=== PATIENT | male | born 1975 | race Hispanic/Latino ===

== ENCOUNTER 2017-10-15 05:29 | Observation (INO) | payer OTHER ==
[2017-10-15 05:40] VITALS: BMI 26.9
[2017-10-15] MEDS ORDERED: Lidocaine/Prilocaine CREAM 5GM TP ONE (05:57)
--- NOTE | 2017-10-15 06:08 | ED PDOC ---
HPI: Back Time Seen by Provider: 10/15/17 05:46 Chief Complaint (Nursing): Back Pain Chief Complaint (Provider): Back Pain Onset/Duration Of Symptoms: Days (x3 weeks) Additional Complaint(s): Hammad Amos is a 42 y/o male with a history of herniated discs presenting to the ED with lower left back pain, worsening for the past x3 weeks. Patient reports that last night pain got worse and he took 800 mg Motrin and 1 Percocet with minimal relief. Patient states that walking exacerbates the pain while resting makes it better. He denies any changes with his bowel or bladder as well as any numbness, weakness, or loss of function in extremities. PMD: Dr. Mcrae Past Medical History Reviewed: Historical Data, Nursing Documentation, Vital Signs Vital Signs: Last Vital Signs Temp 97.7 F 10/15/17 05:47 Pulse 73 10/15/17 05:47 Resp 16 10/15/17 05:47 BP 117/75 10/15/17 05:47 Pulse Ox 99 10/15/17 05:47 - Medical History PMH: Back Problems - Surgical History Surgical History: No Surg Hx - Family History Family History: States: Unknown Family Hx - Allergies Allergies/Adverse Reactions: Allergies Allergy/AdvReac Type Severity Reaction Status Date / Time No Known Allergies Allergy Verified 10/15/17 05:49 Review of Systems ROS Statement: Except As Marked, All Systems Reviewed And Found Negative Constitutional: Negative for: Fever Gastrointestinal: Negative for: Diarrhea, Constipation Genitourinary Male: Negative for: Frequency, Incontinence Musculoskeletal: Positive for: Back Pain (lower left) Neurological: Negative for: Weakness, Numbness, Other (loss of consciousness) Physical Exam - Reviewed Nursing Documentation Reviewed: Yes Vital Signs Reviewed: Yes - Physical Exam Appears: Positive for: Well Head Exam: Positive for: ATRAUMATIC, NORMOCEPHALIC Skin: Positive for: Normal Color, Warm, Dry Eye Exam: Positive for: EOMI, Normal appearance, PERRL Neck: Positive for: Normal, Painless ROM, Supple Cardiovascular/Chest: Positive for: Regular Rate, Rhythm. Negative for: Murmur Respiratory: Positive for: Normal Breath Sounds. Negative for: Respiratory Distress Gastrointestinal/Abdominal: Positive for: Normal Exam, Soft. Negative for: Tenderness Back: Positive for: Other (positive straight leg raise test). Negative for: L CVA Tenderness, R CVA Tenderness, Vertebral Tenderness (midline tenderness) Extremity: Positive for: Normal ROM. Negative for: Pedal Edema, Deformity Neurologic/Psych: Positive for: Alert, Oriented. Negative for: Motor/Sensory Deficits - ECG O2 Sat by Pulse Oximetry: 99 (RA) Pulse Ox Interpretation: Normal Medical Decision Making Medical Decision Making: Time: 05:37 A/P: 42 y/o male with history of herniated disc presents with acute on chronic back pain. Not concerned for cord impingement syndrome; pain likely related to herniated disc. --Toradol 60 mg IM 06:15 --Type and Screen --BMP --Neurology consult --CBC with differential --PTT --Prothrombin Time --CXR Time: 06:[address] Brown who recommended patient to come to ER for evaluation of intractable back pain as patient has already tried treatment at home with NSAIDs and opiates. Will admit to Dr. Cavanaugh for eval by Dr. Brown. ----- Scribe Attestation: Documented by Mateus Argueta, acting as a scribe for Raymond Ventura MD. Provider Scribe Attestation: All medical record entries made by the Scribe were at my direction and personally dictated by me. I have reviewed the chart and agree that the record accurately reflects my personal performance of the history, physical exam, medical decision making, and the department course for this patient. I have also personally directed, reviewed, and agree with the discharge instructions and disposition. Disposition - Clinical Impression Clinical Impression: Intractable back pain - Disposition Disposition Time: 06:15 Condition: FAIR Forms: [facility] ([place]ien)
[2017-10-15] MEDS ORDERED: Lidocaine 5% Patch TD ONE (06:09)
[2017-10-15 06:48] LABS: PARTIAL THROMBOPLASTIN TIME 30.9 Seconds (25.6-37.1); PROTHROMBIN TIME 11.1 Seconds (9.8-13.1)
[2017-10-15 06:52] LABS: BASO % 0.5 % (0.0-2.0); EOS # 0.1 K/uL (0.0-0.7); EOS % 1.5 % (0.0-4.0); HEMOGLOBIN 14.4 g/dL (12.0-18.0); LYMPH # 2.2 K/uL (1.0-4.3); LYMPH % 31.5 % (20.0-40.0); MEAN CELL VOLUME 85.5 fl (80.0-94.0); MEAN CORPUSCULAR HEMOGLOBIN 29.2 pg (27.0-31.0); MEAN CORPUSCULAR HGB CONC 34.2 g/dL (33.0-37.0); MEAN PLATELET VOLUME 7.9 fl (7.2-11.7); MONO # 0.6 K/uL (0.0-0.8); MONO % 8.8 % (0.0-10.0); NEUT # 3.9 K/uL (1.8-7.0); NEUT % 57.7 % (50.0-75.0); NRBC % 0.1 % (0.0-0.0); RBC 4.95 Mil/uL (4.40-5.90); WHITE BLOOD COUNT 6.8 K/uL (4.8-10.8)
[2017-10-15 06:55] VITALS: RESP 20
[2017-10-15] MEDS ORDERED: Iohexol 300 10 ML ONE (07:16)
[2017-10-15] MEDS ORDERED: MethylPREDNISolone Depo 40 mg/ml Inj ONE (07:16)
[2017-10-15] MEDS ORDERED: Midazolam 2 MG/2 ML VIAL ONE ×2 (07:26→07:57)
[2017-10-15] MEDS ORDERED: Propofol 10 mg/ml Inj (20 ML) ONE (07:27)
[2017-10-15] MEDS ORDERED: Succinylcholine 200 mg/10 ml Inj IV ONE (07:27)
[2017-10-15 07:31] LABS: BLOOD UREA NITROGEN 19 mg/dl (9-20); CALCIUM 9.4 mg/dL (8.4-10.2); GFR AFRICAN-AMERICAN > 60; GFR NON-AFRICAN AMERICAN > 60
[2017-10-15] MEDS ORDERED: Lactated Ringer's 1,000 ML IV ONE (07:50)
[2017-10-15] MEDS ORDERED: methylPREDNISolone Depo 80 mg/ml Inj IM ONE (08:05)
[2017-10-15] MEDS ORDERED: Lidocaine 2% Inj (20ml) IJ ONE (08:05)
[2017-10-15] MEDS ORDERED: Iohexol 300 10 ML IJ ONE (08:05)
[2017-10-15] MEDS ORDERED: Bupivacaine 0.25% Inj(30mL) IJ ONE (08:05)
--- NOTE | 2017-10-15 08:09 | CP.PCM.CON ---
History of Present Illness - History of Present Illness History of Present Illness: Patient is a 42 y/o male who presents to the [facility] ER with complaints of severe lower back pain. He has had lower back pain for many years with no history of injury or trauma. He notes that the pain has progressively worsened over the past 3 weeks. He has had difficulties with his daily activities including, bending down running. He has tried and failed conservative management, including oral medications and exercises. Currently the pain is sharp and intermittent. The pain worsens with activity and alleviates with rest. The pain is located in the right lowerback and radiates to the right groin occassionally. He denies any numbness/tingling/bowel or bladder incontinence/ saddle paresthesias. He also denies CP/SOB/N/V/D/fever/dysuria/melena. Dr. Brown was consulted for neurosurgical evaluation. Review of Systems - Review of Systems All systems: reviewed and no additional remarkable complaints except Review of Systems: as per HPI Past Patient History - Past Medical History & Family History Past Medical History?: No - Past Social History Smoking Status: Never Smoked Alcohol: None Drugs: Denies - CARDIAC Hx Cardiac Disorders: No - PULMONARY Hx Respiratory Disorders: No - NEUROLOGICAL Hx Neurological Disorder: No - HEENT Hx HEENT Problems: No - RENAL Hx Chronic Kidney Disease: No - ENDOCRINE/METABOLIC Hx Endocrine Disorders: No - HEMATOLOGICAL/ONCOLOGICAL Hx Blood Disorders: No - INTEGUMENTARY Hx Dermatological Problems: No - MUSCULOSKELETAL/RHEUMATOLOGICAL Hx Back Pain: Yes Hx Herniated Disk: Yes - GASTROINTESTINAL Hx Gastrointestinal Disorders: No - GENITOURINARY/GYNECOLOGICAL Hx Genitourinary Disorders: No - PSYCHIATRIC Hx Psychophysiologic Disorder: No Hx Substance Use: No - SURGICAL HISTORY Hx Surgeries: Yes Hx Eye Surgery: Yes (Strabismus correction surgery, Lasik) Other/Comment: Deviated septum - ANESTHESIA Hx Anesthesia: Yes Hx Anesthesia Reactions: No Hx Malignant Hyperthermia: No Meds Allergies/Adverse Reactions: Allergies Allergy/AdvReac Type Severity Reaction Status Date / Time No Known Allergies Allergy Verified 10/15/17 05:49 Physical Exam - Constitutional Appears: Well, No Acute Distress - Head Exam Head Exam: ATRAUMATIC, NORMOCEPHALIC - Eye Exam Eye Exam: EOMI, Normal appearance, PERRL - ENT Exam ENT Exam: Mucous Membranes Moist, Normal Exam - Respiratory Exam Respiratory Exam: Clear to Auscultation Bilateral, NORMAL BREATHING PATTERN - Cardiovascular Exam Cardiovascular Exam: REGULAR RHYTHM - GI/Abdominal Exam GI & Abdominal Exam: Normal Bowel Sounds, Soft - Neurological Exam Neurological exam: Alert, Oriented x3 - Psychiatric Exam Psychiatric exam: Normal Affect, Normal Mood - Skin Skin Exam: Normal Color, Warm Results - Vital Signs Recent Vital Signs: Last Vital Signs Temp 97.7 F 10/15/17 05:47 Pulse 72 10/15/17 06:54 Resp 20 10/15/17 06:54 BP 115/54 L 10/15/17 06:54 Pulse Ox 99 10/15/17 06:54 - Labs Result Diagrams: 10/15/17 06:30 10/15/17 06:30 Labs: Laboratory Results - last 24 hr 10/15/17 10/15/17 10/15/17 06:30 06:30 06:30 WBC 6.8 RBC 4.95 Hgb 14.4 Hct 42.3 MCV 85.5 MCH 29.2 MCHC 34.2 RDW 13.0 Plt Count 284 MPV 7.9 Neut % (Auto) 57.7 Lymph % (Auto) 31.5 Webb % (Auto) 8.8 Eos % (Auto) 1.5 Baso % (Auto) 0.5 Neut # (Auto) 3.9 Lymph # (Auto) 2.2 Webb # (Auto) 0.6 Eos # (Auto) 0.1 Baso # (Auto) 0.0 PT 11.1 INR 1.0 APTT 30.9 Sodium 142 Potassium 4.4 Chloride 104 Carbon Dioxide 30 Anion Gap 12 BUN 19 Creatinine 1.0 Est GFR ( Amer) > 60 Est GFR (Non-Af Amer) > 60 Random Glucose 92 Calcium 9.4 BBK History Checked 10/15/17 06:30 WBC RBC Hgb Hct MCV MCH MCHC RDW Plt Count MPV Neut % (Auto) Lymph % (Auto) Webb % (Auto) Eos % (Auto) Baso % (Auto) Neut # (Auto) Lymph # (Auto) Webb # (Auto) Eos # (Auto) Baso # (Auto) PT INR APTT Sodium Potassium Chloride Carbon Dioxide Anion Gap BUN Creatinine Est GFR ( Amer) Est GFR (Non-Af Amer) Random Glucose Calcium BBK History Checked No verified bt Assessment & Plan (1) Intractable back pain Assessment and Plan: Patient is a 42 y/o male with lumbar L2-L3 Herniated disc with R sided radiculopathy -Dr. Brown proposes a L2-3, possible other levels, epidural steroid injection today in OR -NPO -Pros/Cons/benefits/risks were explained to the patient in detail. The patient expresses understanding and agrees to proceed. -above d/w Dr. Brown in agreement Status: Acute
[2017-10-15] MEDS ORDERED: Oxycodone/Acetaminophen 5/325 mg Tab PO PRN (08:10)
[2017-10-15] MEDS ORDERED: Lactated Ringer's 1,000 ML IV SCH ×2 (08:15→08:30)
--- NOTE | 2017-10-15 08:37 | RAD ---
Date of service: 10/15/2017 PROCEDURE: CHEST RADIOGRAPH, 1 VIEW HISTORY: intractable pain COMPARISON: None available. FINDINGS: LUNGS: Clear. PLEURA: No pneumothorax or pleural fluid seen. CARDIOVASCULAR: Normal. OSSEOUS STRUCTURES: No significant abnormalities. VISUALIZED UPPER ABDOMEN: Normal. OTHER FINDINGS: None. IMPRESSION: No active disease.
[2017-10-15 09:11] VITALS: BP 132/94; PULSE 78; TEMP 97.9; O2SAT 98
--- NOTE | 2017-10-15 10:59 | RAD ---
Date of service: 10/15/2017 PROCEDURE: Intraoperative Fluoroscopy. HISTORY: EPIDURAL FINDINGS: Fluoroscopic assistance was provided. Fluoroscopy time = 41 seconds Radiation dose = 7.53 mGy. Please refer to operative report for additional details.
--- NOTE | 2017-10-15 20:05 | OP ---
PROCEDURE DATE: 10/15/2017 PREOPERATIVE DIAGNOSES: Herniated lumbar disk at L2-L3 on the right side and sacroiliac arthritis. POSTOPERATIVE DIAGNOSES: Herniated lumbar disk at L2-L3 on the right side and sacroiliac arthritis. PROCEDURE: Right transforaminal injection of epidural at L2-L3 on the right side and sacroiliac joint injection on the right side. SURGEON: Mason Brown M.D. PRODUCTION CONTROL EXPEDITER: Dr. Marte. DESCRIPTION OF PROCEDURE: The patient was brought to the operating room and placed in a prone position. Back of the lumbar area thoroughly prepped and draped in standard sterile manner. At this time, lidocaine has been given corresponding to the L2-L3 area, also epidural injection. After giving the 1% lidocaine with epinephrine, a spinal needle has been placed near the L2-L3 facet joint, and at this point, Omnipaque has been given, made sure that was not going in to the CSF, and at this point, Marcaine mixed with Depo-Medrol has been injected into this area, giving an epidural transforaminal. After that, right sacroiliac joint has been identified under fluoroscopy, and the Marcaine mixed with Depo-Medrol given in the sacroiliac joint, and the patient tolerated the procedure. Fluoroscopy has been used for the procedure. The patient tolerated the procedure. After procedure, mobilized to the recovery room. Mason Brown MD
== END 2017-10-15 10:07 | disposition home or self-care (01) ==
LOC: H.ER 05:29 → H.ERHOLD 06:15
PROVIDERS: ADMIT Family Medicine; ATTEND Family Medicine
DX: M51.16 Intervertebral disc disorders with radiculopathy, lumbar region (principal); J34.2 Deviated nasal septum; G89.29 Other chronic pain; M19.90 Unspecified osteoarthritis, unspecified site
CPT/HCPCS: 27096; 62322; 71045; 80048; 85025; 85610; 85730; 86850; 86900; 99285; G0378; J1030; J1040; J2250; J3010; J7120; Q9967